=== PATIENT | female | born 1995 | race Caucasian/White ===

== ENCOUNTER 2020-02-29 12:53 | Emergency (ER) | payer OTHER, SELFPAY ==
[2020-02-29 12:56] VITALS: BP 138/90; PULSE 117; RESP 18; TEMP 36.9; O2SAT 98
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
--- NOTE | 2020-02-29 13:29 | PC.NURSE ---
Pt does not want getting any information about pt Raina Arteaga is pts wifes name.
--- NOTE | 2020-02-29 13:30 | PC.NURSE ---
Pt placed in green scrubs and room is made safe. NO sitter is needed per ER
--- NOTE | 2020-02-29 13:35 | PC.NURSE ---
PT GIVES CONSENT TO SPEAK WITH ELAINA MONTAÑO: #[phone] AND GIVES CONSENT TO GIVE UPDATES TO ELAINA IF SHE CALLS.
[2020-02-29 13:39] LABS: Basophils Percent Auto 0.4 % (0.2-1.2); Eosinophils Absolute Auto 0.1 K/mm3 (0-0.3); Eosinophils Percent Auto 0.8 % (0-4.4); Hematocrit 43.2 % (37.0-47.0); Hemoglobin 14.8 g/dL (12.0-15.0); Immature Granulocyte Absolute 0.02 K/mm3 (0.00-0.031); Immature Granulocyte Percent A 0.3 % (0-0.5); Lymphocytes Absolute Auto 1.41 K/mm3 (0.9-3.2); Mean Corpuscular HGB Conc 34.3 g/dl (32-36); Mean Corpuscular Hemoglobin 29.5 pg (26-34); Mean Corpuscular Volume 86.1 fl (80-100); Mean Platelet Volume 10.3 fl (7.4-10.4); Monocytes Absolute Auto 0.4 K/mm3 (0.1-0.6); Monocytes Percent Auto 5.1 % (2.6-8.5); Neutrophils Absolute Auto 5.5 K/mm3 (1.3-6.7); Neutrophils Percent Auto 74.4 % (45.5-73.1); Platelet Count Result 308 k/mm3 (150-375); Red Blood Count 5.02 M/mm3 (4.2-5.4); Red Cell Distribution Width 12.2 % (11.5-14.5); White Blood Count 7.4 K/mm3 (4.5-10.0)
[2020-02-29 13:45] LABS: Add Urine Microscopic? YES; Appearance Urine Clear (Clear); Bacteria Urine Trace /hpf; Bilirubin Urine Negative (Negative); Blood Urine Negative (Negative); Color Urine Yellow (Yellow); Glucose Urine UA Negative (Negative); Hyaline Casts Urine 20-29 /lpf; Ketones Urine Negative (Negative); Leukocyte Esterase Ur Negative LEU/UL (Negative); Mucus Urine Rare /lpf; Nitrate Urine Negative (Negative); Protein Urine 2+ mg/dL (Negative); RBC Urine 0-2 /hpf (0-2); Specific Grav Ur 1.009 (1.001-1.035); Squamous Epithelial Cell Urine Occasional /hpf (Few); Urobilinogen Urine Negative mg/dL (<2.0); WBC Urine 0-3 /hpf
[2020-02-29 13:50] LABS: Alanine Aminotransferase 17 U/L (4-35); Albumin Level 4.9 g/dL (3.5-5.1); Alkaline Phosphatase 57 U/L (38-126); Anion Gap 14 mmol/L (8-16); Aspartate Amino Transferase 25 U/L (14-36); Bilirubin,Total 0.6 mg/dL (0.2-1.3); Blood Urea Nitrogen 9 mg/dL (7-17); Calcium 9.9 mg/dL (8.4-10.2); Carbon Dioxide 21 mmol/L (22-30); Chloride 105 mmol/L (98-107); Estimated Glomerular Filt Rate > 60; Glucose 102 mg/dL (65-105); Potassium 4.2 mmol/L (3.4-5.0); Sodium 140 mmol/L (137-145)
[2020-02-29 13:52] LABS: Ethanol < 10 mg/dL (<10)
[2020-02-29 14:03] LABS: Barbiturate Screen Urine Negative (Negative); Benzodiazepines Screen Urine Negative (Negative)
[2020-02-29 14:22] LABS: Amphetamine Screen Urine Negative (Negative); Cannabinoid Screen Urine Negative (Negative); Methadone Screen Urine Negative (Negative); Opiate Screen Urine Negative (Negative); Phencyclidine Screen Urine Negative (Negative)
--- NOTE | 2020-02-29 14:35 | ED.PSYCH ---
HPI - Psych General Chief Complaint: Psychiatric Symptoms Stated Complaint: SI Time Seen by Provider: 02/29/20 12:56 History of Present Illness HPI Narrative: Patient is a 24-year-old female who presents the emergency department with chief complaint of mental health evaluation. Patient reports that she has been under a lot of stress just moved from [place] to the local area to be with her . Patient states that today she got an argument with her significant other and there apparently were some texts that were questionable as to whether the patient was having thoughts of wanting to harm herself. Currently the patient states that she is very upset but denies being suicidal or homicidal. Patient states that she is under an immense amount of stress reports that it is improved whenever she talks with her friend and not worsened by anything. Related Data Allergies Allergy/AdvReac Type Severity Reaction Status Date / Time No Known Allergies Allergy Unverified 04/13/17 20:14 Review of Systems Review of Systems: Narrative: CONSTITUTIONAL: Denies fever, chills, or sweats. EYES: Denies visual changes, redness, or discharge. ENT: Denies rhinorrhea, congestion, sore throat, or otalgia. CARDIOVASCULAR: Denies chest pain, palpitations, or edema. RESPIRATORY: Denies cough or dyspnea. GASTROINTESTINAL: Denies abdominal pain, nausea, vomiting, or diarrhea. GENITOURINARY: Denies dysuria or hematuria. SKIN: Denies rash or itching. MUSCULOSKELETAL: Denies back pain, joint pain, or myalgia. NEUROLOGIC: Denies headache, numbness, or weakness. PSYCHIATRIC: Denies anxiety or depression. All systems reviewed & are unremarkable except as noted in HPI and below PMFSH Comments No significant past medical history Patient denies illicit drug use Exam Narrative: Exam Narrative: GENERAL: Well-appearing, well-nourished, and in no acute distress. HEAD: Normocephalic, atraumatic. EYES: PERRLA and EOMI. ENT: Nares clear, no rhinorrhea or epistaxis. Mucous membranes moist. NECK: Supple. CHEST: Clear to auscultation. No respiratory distress. HEART: Regular rate and rhythm. No murmur heard. Normal peripheral pulses. ABDOMEN: Soft, nontender, nondistended, normal active bowel sounds. EXTREMITIES: Normal range of motion. No edema. SKIN: Warm, dry, no rash. NEURO: No focal deficits. Alert and oriented x3. PSYCH: Normal mood and affect. Course Course Emergency Course: Patient is medically cleared for psychiatric evaluation Patient was seen by mental health given outpatient follow-up instructions and safety plan Vital Signs Vital signs: Vital Signs Temperature 36.9 C 02/29/20 12:56 Pulse Rate 117 H 02/29/20 12:56 Respiratory Rate 18 02/29/20 12:56 Blood Pressure 138/90 02/29/20 12:56 Pulse Oximetry 98 02/29/20 12:56 Temperature 36.9 C 02/29/20 12:56 Pulse Rate 117 H 02/29/20 12:56 Respiratory Rate 18 02/29/20 12:56 Blood Pressure 138/90 02/29/20 12:56 Pulse Oximetry 98 02/29/20 12:56 MDM - Psych Lab Data Result diagrams: 02/29/20 13:17 02/29/20 13:17 Labs: Lab Results 02/29/20 02/29/20 02/29/20 Range/Units 13:17 13:17 13:17 WBC 7.4 (4.5-10.0) K/mm3 RBC 5.02 (4.2-5.4) M/mm3 Hgb 14.8 (12.0-15.0) g/dL Hct 43.2 (37.0-47.0) % MCV 86.1 (80-100) fl MCH 29.5 (26-34) pg MCHC 34.3 (32-36) g/dl RDW 12.2 (11.5-14.5) % Plt Count 308 (150-375) k/mm3 MPV 10.3 (7.4-10.4) fl Immature Gran % (Auto) 0.3 (0-0.5) % Neut % (Auto) 74.4 H (45.5-73.1) % Lymph % (Auto) 19.0 (18.3-44.2) % Routt % (Auto) 5.1 (2.6-8.5) % Eos % (Auto) 0.8 (0-4.4) % Baso % (Auto) 0.4 (0.2-1.2) % Lymph # (Auto) 1.41 (0.9-3.2) K/mm3 Routt # (Auto) 0.4 (0.1-0.6) K/mm3 Eos # (Auto) 0.1 (0-0.3) K/mm3 Baso # (Auto) 0.0 (0.0-0.1) K/mm3 Abs Immat Gran (auto) 0.02 (0.00-0.031) K/mm3 Absolute Neuts (auto) 5.5 (1
--- NOTE | 2020-02-29 14:40 | PC.NURSE ---
[facility] called for pt. Spoke Mandy.
[2020-02-29 14:41] LABS: Cocaine Screen Urine Negative (Negative)
--- NOTE | 2020-02-29 14:44 | PC.NURSE ---
Mandy states she will call Velma and let her know about Pt
--- NOTE | 2020-02-29 15:45 | PC.NURSE ---
Velma from [facility] here to speak with pt.
== END 2020-02-29 16:16 | disposition home or self-care (01) ==
PROVIDERS: Emergency Provider Emergency Medicine
DX: F32.1 Major depressive disorder, single episode, moderate (principal)
CPT/HCPCS: 36415; 80053; 80307; 81001; 81025; 84443; 85025; 99284